=== PATIENT | male | born 1980 | race Caucasian/White ===

== ENCOUNTER 2017-09-22 19:10 | Emergency (ER) | payer SELFPAY ==
[~2017-09-22] VITALS: Ht 182.9 cm; Wt 73.4 kg
[2017-09-22] MEDS ORDERED: NORCO 325 MG-51 TAB PO (19:29)
[2017-09-22 21:40] VITALS: BP 134/94; PULSE 79; TEMP 96.5
== END 2017-09-22 21:40 | disposition home or self-care (01) ==
LOC: COL.ER 19:10
DX: N49.2 Inflammatory disorders of scrotum (principal); F17.210 Nicotine dependence, cigarettes, uncomplicated; R59.9 Enlarged lymph nodes, unspecified; Z90.89 Acquired absence of other organs